=== PATIENT | male | born 1975 | race Caucasian/White ===

== ENCOUNTER 2021-01-08 12:29 | Outpatient (CLI) | payer OTHER, SELFPAY ==
--- NOTE | ~2021-01-08 | CT_ITS ---
EXAMINATION: CT abdomen pelvis wo/w con EXAM DATE: 01/08/2021 13:59 INDICATION: Gross hematuria. TECHNIQUE: Spiral CT of the abdomen and pelvis was performed without contrast. The patient was then injected with small bolus intravenous Omnipaque 350, followed by delay of approximately 10 minutes to allow collecting system to opacify. A post contrast scan abdomen and pelvis was performed during inj ection of remaining contrast. A total of 130 cc intravenous contrast was administered. The dose-dc th product (DLP) for this examination was 2094.94 mGy-cm. The exposure was tailored according to pat ient size (auto mA exposure control), and iterative reconstruction (ASIR) was used as additional dose reduction technique. There is no prior study for comparison. FINDINGS: Mildly enhanced vascular, no suspicion of proximal femoral vein, common femoral, iliac or I VC thrombus (commenting on this due to the abnormal scrotal ultrasound). There is no hydronephrosis or nephrolithiasis. There is a 1 cm left renal cyst. The kidneys enhance symmetrically. There are no suspicious renal lesions. The calyces and opacified portions of ureter s are unremarkable, without filling defects or focal suspicious strictures. The bladder is unremarka ble. The prostate is unremarkable. The liver, spleen, adrenal glands and pancreas are unremarkable. Gallbladder is unremarkable. No bi liary obstruction. There is no retroperitoneal or pelvic lymphadenopathy. There is mild to moderat e scattered arteriosclerotic disease. No findings to suggest appendicitis. There is mild sigmoid colonic diverticulosis. There is no adjac ent inflammatory change to suggest diverticulitis. The stomach and small bowel are unremarkable. The re is expected amount of colonic stool. No free intraperitoneal gas. The heart is normal in size. There are no pericardial or pleural effusions. The lung bases are unremarkable. There are no oste oblastic or osteolytic lesions identified. IMPRESSION: 1. No suspicious genitourinary findings. 2. Mild sigmoid diverticulosis. Reviewed, dictated and finalized at location A.
--- NOTE | ~2021-01-08 | US_ITS ---
EXAMINATION: US scrotum doppler EXAM DATE: 01/08/2021 13:15 INDICATION: Pain in right testicle. Palpable abnormality right side. TECHNIQUE: Multiple grayscale and Doppler images of the testicles and scrotum were obtained bilateral ly. There is no prior study for comparison. FINDINGS: Right testicle measures 5.1 x 2.4 x 3.8 cm and is morphologically normal. Low resistance Doppler daphney w confirmed. The epididymis is unremarkable. Just superior to the right testicle technologist noted s ome serpiginous structures probably veins which appeared mildly dilated and for noncompressible. Assu ck these are veins, could be thrombophlebitis. Reportedly this correlated to area of palpable abnor mality. Left testicle measures 4.5 x 2.4 x 3.2 cm and is morphologically normal. Low resistance Doppler flow confirmed. The epididymis is unremarkable. Small hydrocele. IMPRESSION: 1. Probable abnormality may correspond to thrombophlebitis within right varicocele. 2. Normal testicle morphology bilaterally. 3. Small left hydrocele. Reviewed, dictated and finalized at location A. IMPRESSION: 1. Probable abnormality may correspond to thrombophlebitis within right varico khanh. 2. Normal testicle morphology bilaterally. 3. Small left hydrocele.
--- NOTE | ~2021-01-08 | XR_ITS ---
XR abdomen/kub 1V 01/08/2021 13:15 INDICATION: Gross hematuria TECHNIQUE: KUB COMPARISON: None FINDINGS: Bowel gas pattern is normal. There is no evidence of free air, mass, organomegaly, ascites or obstruction. No abnormal calculi are seen. The bones appear intact. IMPRESSION: 1: No acute abdominal abnormality identified. Reviewed, dictated and finalized at location B.
[2021-01-10 01:39] LABS: Estimated Glomerular Filt Rate > 60
== END 2021-01-08 12:30 | disposition home or self-care (01) ==
LOC: ANHIMG 12:34
PROVIDERS: PCP Internal Medicine; Visit Provider Urology
DX: R31.0 Gross hematuria (principal); N50.811 Right testicular pain; K57.90 Diverticulosis of intestine, part unspecified, without perforation or abscess without bleeding; N43.3 Hydrocele, unspecified
CPT/HCPCS: 74018; 74178; 76870; 93976; Q9967